=== PATIENT | female | born 1975 | race Caucasian/White ===

== ENCOUNTER 2016-06-17 15:47 | Inpatient (IN) | payer OTHER ==
[2016-06-17 15:54] VITALS: BMI 33.7
[2016-06-17] MEDS ORDERED: ONDANSETRON 4 MG/2 ML VIAL IVPUSH ONE (17:21)
[2016-06-17] MEDS ORDERED: SODIUM CHLORIDE 1,000 ML IV STA (17:21)
--- NOTE | 2016-06-17 17:23 | PDOC ---
History of Present Illness - General History Source: Patient Exam Limitations: No Limitations - History of Present Illness Initial Comments: 06/17/16 17:53 The patient is a 40-year-old female, with a significant past medical history of breast CA to brain and spine, who presents to the ED with 1 week of epigastric pain. The patient states that her pain is constant, sharp-like in sensation, exacerbated when lying down, and associated with nausea and vomiting. She has not been able to tolerate any solids but its able to hold down small amounts of liquids. The patient visited her Oncologist last Sunday for the abdominal pain and nausea and was prescribed some anti-nausea medication but her symptoms have not been alleviated. Pt has been taking her oral chemotherapy medication ( Capecitabine) for the past few weeks and receives radiation for her brain tumor and a shot for her bone mets. She reports that she last vomited prior to her visit (appeared yellow in color, no blood noted). The patient reports cough, and shortness of breath, back pain. The patient denies any fever, chills, diarrhea, dysuria, or hematuria. The patient denies any chest pain. Oncologist: Dr. Radha Mcnair <Nikki Davis - Last Filed: 06/18/16 02:02> - General History Source: Patient Exam Limitations: No Limitations <Cecily Sanders - Last Filed: 06/18/16 02:20> - General Chief Complaint: Pain, Acute Stated Complaint: ABD PAIN, NAUSEA Time Seen by Provider: 06/17/16 16:57 Past History <Nikki Davis - Last Filed: 06/18/16 02:02> - Past Medical History Cancer: Yes (breast stage IV) - Psycho/Social/Smoking Cessation Hx Suicidal Ideation: No Smoking History: Never smoked <Cecily Sanders - Last Filed: 06/18/16 02:20> - Past Medical History Allergies/Adverse Reactions: Allergies Allergy/AdvReac Type Severity Reaction Status Date / Time No Known Allergies Allergy Verified 06/17/16 15:48 Home Medications: Ambulatory Orders Granisetron HCl 1 mg PO BID 06/17/16 Review of Systems - Review of Systems Able to Perform ROS?: Yes Comments:: 06/17/16 17:55 GENERAL/CONSTITUTIONAL: No: fever, chills, weakness. Yes: loss of appetite HEAD, EYES, EARS, NOSE AND THROAT: No: change in vision, ear pain, discharge, sore throat, throat swelling. CARDIOVASCULAR: No: chest pain, lightheadedness, palpitations, syncope RESPIRATORY: No:wheezing, hemoptysis, stridor. Yes: cough, shortness of breath GASTROINTESTINAL: No: diarrhea, rectal bleeding, constipation. Yes: nausea, vomiting, abdominal pain. GENITOURINARY: No: dysuria, hematuria, frequency, urgency, flank pain. MUSCULOSKELETAL: No: neck pain, joint pain, muscle swelling. (+)back pain SKIN AND BREASTS: No: lesions, pallor, rash or easy bruising. NEUROLOGIC: No: headache, vertigo, paresthesias, weakness ENDOCRINE: No: unexplained weight gain or loss HEMATOLOGIC/LYMPHATIC: No: anemia, easy bleeding, swelling nodes <Nikki Davis - Last Filed: 06/18/16 02:02> *Physical Exam - Vital Signs Last Vital Signs Temp Pulse Resp BP Pulse Ox 98.1 F 122 H 18 119/98 98 06/17/16 15:48 06/17/16 15:48 06/17/16 15:48 06/17/16 15:48 06/17/16 15:48 - Physical Exam Comments: 06/17/16 17:59 GENERAL: The patient is in no acute distress. HEAD: Normal with no signs of trauma. EYES: PERRLA, EOMI, conjunctiva clear. (+)Sclera mildly icteric. ENT: Ears normal, nares patent, oropharynx clear without exudates. Moist mucous membranes. NECK: Normal range of motion, supple without lymphadenopathy, JVD, or masses. LUNGS: Breath sounds equal, clear to auscultation bilaterally. No wheezes, and no crackles. HEART:Regular rate and rhythm, normal S1 and S2 without murmur, rub or gallop. ABDOMEN: Soft, normoactive bowel sounds. No guarding, no rebound. (+)Diffuse abdominal tenderness, epigastric tenderness is worse. EXTREMITIES: Normal range of motion, no edema. No clubbing or cyanosis. No erythema, or tenderness. NEUROLOGICAL: Cranial nerves II through XII grossly intact. Normal speech. No focal neurological deficits. MUSCULOSKELETAL: Back non-tender to palpation, no CVA tenderness SKIN: Warm, Dry, normal turgor, no rashes or lesions noted. <Nikki Davis - Last Filed: 06/18/16 02:02> - Vital Signs Last Vital Signs Temp Pulse Resp BP Pulse Ox 98.1 F 122 H 18 119/98 98 06/17/16 15:48 06/17/16 15:48 06/17/16 15:48 06/17/16 15:48 06/17/16 15:48 <Cecily Sanders - Last Filed: 06/18/16 02:20> ED Treatment Course - LABORATORY CBC & Chemistry Diagram: 06/17/16 17:12 06/17/16 17:12 - Medications Given in the ED: ED Medications Discontinued Medications Generic Name Dose Route Start Last Admin Trade Name Tracy PRN Reason Stop Dose Admin Ondansetron HCl 4 mg 06/17/16 17:21 06/17/16 17:37 Zofran Injection IVPUSH 06/17/16 17:22 4 mg ONCE ONE Administration <Nikki Davis - Last Filed: 06/18/16 02:02> - LABORATORY CBC & Chemistry Diagram: 06/17/16 17:12 06/17/16 17:12 <Cecily Sanders - Last Filed: 06/18/16 02:20> Medical Decision Making - Medical Decision Making 06/18/16 02:03 Dr. Mcnair was paged and notified via phone service. <Nikki Davis - Last Filed: 06/18/16 02:02> - Medical Decision Making 06/17/16 17:23 I, Dr. Cecily Sanders, attest that this document has been prepared under my direction and personally reviewed by me in its entirety. I further attest, that it accurately reflects all work, treatment, procedures and medical decision -making performed by me. This is a 40 yo F with metastatic breast cancer (to the brain), s/p radiation, currently on chemo, possible ovarian ca (per patient)? pt presents to the ER with a complaint of diffuse abdominal pain pt has had abdominal pain for the past 5 days no fevers or chills (+) nausea and vomiting no diarrhea no change in diet no recent travel no ill contacts no prior reaction like this to chemo On examination: (+) mild scleral icterus diffuse abdominal tenderness, worse in the epigastrum, LUQ no involuntary guarding or rebound Will do labs Will do CT Will do US 06/17/16 19:04 Laboratory Tests 06/17/16 06/17/16 06/17/16 17:12 17:12 17:12 WBC 14.3 H D Hgb 13.5 Hct 39.9 Plt Count 426 D Neutrophils % 75.0 Lymphocytes % 16.0 Sodium 125 L D Potassium 5.1 D Chloride 90 L Carbon Dioxide 20 L D BUN 32 H D Creatinine 0.9 D Random Glucose 119 H Total Bilirubin 2.6 H D AST 193 H D ALT 128 H D Total Amylase 22 L Lipase 111 Serum , Qual Negative 06/17/16 20:45 US cholelithiasis No gb wall thickening (+) ascites Pending CT 06/17/16 23:18 IMAGES: 536 EXAM DATE AND TIME: 2016-06-17 22:28:53.0 EXAM: CT ABDOMEN AND PELVIS WITH CONTRAST Large pericardial effusion up to 3.8 cm thick. Moderate bilateral pleural effusions. Enlarged, heterogeneous ovaries measuring 8.2 cm on left and 7.5 cm on right, advise further evaluation with ultrasound. Multiple sclerotic lesions spine and pelvis, suspicious for metastatic disease. Small to moderate ascites. Presacral edema. No bowel obstruction, colitis, or free air. Normal appendix. Unremarkable pancreas and kidneys. Cholelithiasis. THIS DOCUMENT HAS BEEN ELECTRONICALLY SIGNED Disha Boudreaux M.D. 06/17/2016 22:59 EST 06/17/16 23:[address] Landon. Will place patient on observation Pt has elevated biliurbin Pt has icteric sclera 06/18/16 02:14 Pt admitted to hospitalist Call placed to Dr Mncair She states pt previously had effusions Current CT demonstrates large effusions she recommends transfer to [facility] <Cecily Sanders - Last Filed: 06/18/16 02:20> *DC/Admit/Observation/Transfer - Attestations Scribe Attestion: 06/17/16 18:00 Documentation prepared by Nikki Davis, acting as medical accountant for Cecily Sanders MD. <Nikki Davis - Last Filed: 06/18/16 02:02> - Discharge Dispostion Admit: Yes <Cecily Sanders - Last Filed: 06/18/16 02:20> Diagnosis at time of Disposition: Vomiting Qualifiers: Vomiting type: unspecified Vomiting Intractability: intractable Nausea presence : with nausea Qualified Code(s): R11.2 - Nausea with vomiting, unspecified Abdominal pain Qualifiers: Abdominal location: upper abdomen, unspecified Qualified Code(s): R10.10 - Upper abdominal pain, unspecified - Discharge Dispostion Condition at time of disposition: Stable - Referrals
[2016-06-17] MEDS ORDERED: morphine CARPU-JECT 4 MG/1 ML DISP.SYRIN ONE (17:30)
[2016-06-17 17:44] LABS: MCH 33.9 pg (25.7-33.7); MCHC 33.8 g/dl (32.0-36.0); MEAN CELL VOLUME 100.3 fl (80-96); MEAN PLT VOLUME 8.1 fl (7.5-11.1); PLATELET COUNT 426 K/MM3 (134-434); RDW 16.7 % (11.6-15.6); WHITE BLOOD COUNT 14.3 K/mm3 (4.0-10.0)
[2016-06-17 18:12] LABS: ANISOCYTOSIS 1+; PLATELET ESTIMATE INCREASED (NORMAL); POLYCHROMASIA FEW
[2016-06-17 18:13] LABS: ALBUMIN 3.5 g/dl (3.4-5.0); AMYLASE 22 U/L (25-115); ANION GAP 15 (8-16); CO2 20 mmol/L (21-32); CREATININE 0.9 mg/dL (0.55-1.02); GLUCOSE,RANDOM 119 mg/dL (74-106); SGOT/AST 193 U/L (15-37); SGPT/ALT 128 U/L (12-78)
[2016-06-17 18:14] LABS: ALK PHOS 92 U/L (45-117); BILIRUBIN,TOTAL 2.6 mg/dL (0.2-1.0); TOT PROT 6.6 g/dl (6.4-8.2)
[2016-06-17 19:48] LABS: URINE APPEARANCE SLCLOUDY; URINE BLOOD NEGATIVE (NEGATIVE); URINE COLOR AMBER; URINE GLUCOSE (UA) 1+ (NEGATIVE); URINE KETONE TRACE (NEGATIVE); URINE NITRITE NEGATIVE (NEGATIVE); URINE UROBILINOGEN 4.0 E.U/dl E.U./dl (0.2-1.0)
[2016-06-17 19:54] LABS: URINE LEUK ESTERASE 1+ (NEGATIVE); URINE PROTEIN 3+ (NEGATIVE)
[2016-06-17] MEDS ORDERED: morphine CARPU-JECT 4 MG/1 ML DISP.SYRIN IVPUSH ONE (20:15)
[2016-06-18] MEDS ORDERED: SODIUM CHLORIDE 1,000 ML IV STA ×2 (01:46→09:19)
--- NOTE | 2016-06-18 02:22 | PDOC ---
ED Treatment Course - LABORATORY CBC & Chemistry Diagram: 06/18/16 06:15 06/18/16 06:15 - ADDITIONAL ORDERS Additional order review: Laboratory Results 06/17/16 06/17/16 17:12 17:12 Sodium 125 L D Potassium 5.1 D Chloride 90 L Carbon Dioxide 20 L D Anion Gap 15 BUN 32 H D Creatinine 0.9 D Creat Clearance w eGFR > 60 Random Glucose 119 H Calcium 8.0 L Total Bilirubin 2.6 H D AST 193 H D ALT 128 H D Alkaline Phosphatase 92 D Total Protein 6.6 Albumin 3.5 Total Amylase 22 L Lipase 111 Serum , Qual Negative Urine Color Iveth Urine Appearance Slcloudy Urine pH 5.0 D Ur Specific [place] 1.032 Urine Protein 3+ H Urine Glucose (UA) 1+ H Urine Ketones Trace H Urine Blood Negative Urine Nitrite Negative Urine Bilirubin 2.0 Urine Urobilinogen 4.0 e.u/dl H Ur Leukocyte Esterase 1+ H D 06/17/16 17:12 RBC 3.98 MCV 100.3 H MCHC 33.8 RDW 16.7 H MPV 8.1 Neutrophils % 75.0 Lymphocytes % 16.0 Monocytes % 7.0 Eosinophils % 2.0 - RADIOLOGY Radiology Studies Ordered: Category Date Time Status ABDOMEN & PELVIS CT WITH CONTR [CT] Stat CT Scan 06/17/16 17:51 Taken ABDOMEN US -LIMITED [US] Stat Ultrasound 06/17/16 19:14 Taken - Medications Given in the ED: ED Medications Discontinued Medications Generic Name Dose Route Start Last Admin Trade Name Freq PRN Reason Stop Dose Admin Sodium Chloride 1,000 mls @ 1,000 mls/hr 06/17/16 17:21 06/17/16 17:37 Normal Saline - IV 06/17/16 18:20 1,000 mls/hr ASDIR STA Administration Morphine Sulfate 4 mg 06/17/16 20:15 06/17/16 16:40 Morphine Injection - IVPUSH 06/17/16 20:16 4 mg ONCE ONE Administration Ondansetron HCl 4 mg 06/17/16 17:21 06/17/16 17:37 Zofran Injection IVPUSH 06/17/16 17:22 4 mg ONCE ONE Administration Medical Decision Making - Medical Decision Making 06/18/16 02:49 Plan to transfer this patient to [facility] Accepted by Dr Darryl Downing No beds Pt will be given priority for transfer in the AM Pt may need intervention for large pericardial effusion *DC/Admit/Observation/Transfer Diagnosis at time of Disposition: Vomiting Qualifiers: Vomiting type: unspecified Vomiting Intractability: intractable Nausea presence : with nausea Qualified Code(s): R11.2 - Nausea with vomiting, unspecified Abdominal pain Qualifiers: Abdominal location: upper abdomen, unspecified Qualified Code(s): R10.10 - Upper abdominal pain, unspecified - Discharge Dispostion Disposition: TRANSFER ACUTE CARE/OTHER HOSP Condition at time of disposition: Stable Decision to Admit order Date/Time: Decision to Admit Order Category Date Time Status Decision to Admit to Hospital Routine Admission 06/17/16 23:55 Active - Transfer to Acute Care Facility Receiving Facility: [facility] Accepting Physician:: Dr. Darryl Downing
--- NOTE | 2016-06-18 02:59 | HP ---
Admitting History and Physical - Admission Chief Complaint: abdominal pain History of Present Illness: 40-year-old female, with a significant past medical history of breast CA to brain and spine, who presents to the ED with 1 week of abdominal pain. She reports pain is felt mostly in her RUQ region, non-radiating 5/10, aggravated with laying on her right side. She reports taking some tylenol 2 tabs 500mg BID for the past 2 days. She endorses associated nausea, and decreased appetite. She states she has been vomiting clear material. She states she has body aches and chills. She also endorses MAY x 1 week. She reports shortness of breath with walking. She reports feeling pressure in her chest with sitting up. She reports that when she lays down she feels like fluid in her chest. She reports noticing skin color changes since starting the chemo and states that she has been itching. She was seen by her oncologist and given Granisteron with no improvement. She has been on Capecitabine and getting Xrt for brain mets in 2016. She reports that her cancer is stage 4 and she is palliative care. She reports gradual weight loss over 20lb in the past year. Per attending's discussion with oncologist, the patient previously had small pericardial effusion and pleural effusions. She denies fevers, diarrhea, dysuria, cough, orthopnea She denies heart palps, dizziness, headache Attending ER spoke with Dr. Downing who will accept patient to [facility]. Unfortunately there is no bed available at the moment PMH/PSh: Metastatic breast cancer, Social: She denies tobacco, alcohol, recreational drugs. Has 2 kids ages 15,6 Famhx: Mom- htn. Dad- DM Dr. Ford-- Oncologist Ros neg except for hpi Physical General- in nad, alert Hent- At/NC, theresa, sclera icterus, L supraclavicular node, trachea midline Resp- no cough, no accessory muscle use, lungs ctab, no wheeze, no rhonci Cards- S1S2 heard, no JVD, extremity pulses +2, no leg edema, tachycardic Skin- jaundice, discoloration to neck Musk- normal arom bue/ble Gi- ascites, + rebound, no guarding, no rigidity, BS normoactive Psych- cooperative, no agitation, normal affect Neuro- alert and oriented, speech clear, no seizures Prob list Metastatic breast cancer Transaminitis Hyponatremia Dehydration Abd pain N/V Pericaridal effusion Pleural effusions Hyperbilirubemia Leukocytosis uti MAY Anorexia Imagin06/17/16 20:45 US cholelithiasis No gb wall thickening (+) ascites EXAM DATE AND TIME: 2016-06-17 22:28:53.0 EXAM: CT ABDOMEN AND PELVIS WITH CONTRAST Large pericardial effusion up to 3.8 cm thick. Moderate bilateral pleural effusions. Enlarged, heterogeneous ovaries measuring 8.2 cm on left and 7.5 cm on right, advise further evaluation with ultrasound. Multiple sclerotic lesions spine and pelvis, suspicious for metastatic disease. Small to moderate ascites. Presacral edema. No bowel obstruction, colitis, or free air. Normal appendix. Unremarkable pancreas and kidneys. EKG- sinus tachycardia, normal intervals CXR pending A/P 40-year-old female, with a significant past medical history of breast CA to brain and spine, who presents to the ED with 1 week of abdominal pain admitted for evaluation of their emergent condition. 1. Abdominal pain, nausea and vomiting---- ?Perotinitis, ?Carcinamatosis ? Cystitis CTAP negative for obstruction, shows large pericardial effusion and pleural effusion On exam patient had ?rebound tenderness, Ultrasound shows ascites UA show +1 leukocytes, Control pain Abdomen checks Prn Zofran Will Give CTX 2gm Collect blood cultures Consult ID 2. Transaminitis, Hyperbilirubemia ? 2/2chemo Patient on Capecitabine Patient appears jaundice US neg for gallbladder wall thickening Will check Acute hep panel, Tylenol level Monitor LFTs 3. Hyponatremia, likely related to volume loss from vomiting Gently fluid resuscitation Check serum osm Monitor labs 4. Metastatic breast cancer, brain and bone mets Patient following Dr. Ford, anticipate transfer to [facility] Per patient she had 16 Xrt treatments to her brain in 2015 5. Pericardial effusion, pleural effusion Cardiac tele, check echo, cards consult 6. MAY likely referable to #5 1st trop negative, no katie/std Cards consult Cycle troponins Check echo 7. Leukocytosis Monitor labs 8.Anorexia referable to #4 FEN IVF NS 75cc/hr DVT prophy SCD, OOB, hold chemoprophy 2/2 hx of brain mets, and pericardial effusion Dispo- Anticipate transfer to [facility] in am for further care History Source: Patient Limitations to Obtaining History: Language Barrier - Smoking History Smoking history: Never smoked Home Medications - Allergies Allergies/Adverse Reactions: Allergies Allergy/AdvReac Type Severity Reaction Status Date / Time No Known Allergies Allergy Verified 06/17/16 15:48 - Home Medications Home Medications: Ambulatory Orders Granisetron HCl 1 mg PO BID 06/17/16 Physical Examination Vital Signs: Vital Signs Temperature 97.5 F L 06/17/16 22:44 Pulse Rate 110 H 06/17/16 22:44 Respiratory Rate 20 06/17/16 22:44 Blood Pressure 118/92 06/17/16 22:44 O2 Sat by Pulse Oximetry (%) 99 06/17/16 22:44 Visit type - Emergency Visit Emergency Visit: Yes ED Registration Date: 06/17/16 Care time: The patient presented to the Emergency Department on the above date and was hospitalized for further evaluation of their emergent condition. - New Patient This patient is new to me today: Yes Date on this admission: 06/18/16 - Critical Care Critical Care patient: No
[2016-06-18] MEDS ORDERED: ONDANSETRON 4 MG/2 ML VIAL IVPB PRN (03:06)
[2016-06-18] MEDS ORDERED: morphine CARPU-JECT 2 MG/1 ML DISP.SYRIN IVPUSH PRN ×3 (03:07→14:27)
[2016-06-18] MEDS ORDERED: CEFTRIAXONE 2 GM in DEXTROSE 5%-WATER - 100 ML IVPB ONE (04:26)
[2016-06-18] MEDS ORDERED: cefTRIAXone 2 GM/100 ML BAG (PRE-DOCKED) IVPB SCH (05:30)
[2016-06-18] MEDS ORDERED: diphenhydrAMINE HCL 25 MG CAPSULE (FP) PO PRN (06:46)
[2016-06-18 07:42] LABS: BASOPHIL 0.9 % (0-2.0); EOSINOPHIL 0.3 % (0-4.5); MCH 34.3 pg (25.7-33.7); MEAN CELL VOLUME 100.8 fl (80-96); MEAN PLT VOLUME 7.9 fl (7.5-11.1); NEUTROPHILS 72.5 % (42.8-82.8); PLATELET COUNT 386 K/MM3 (134-434); RDW 17.2 % (11.6-15.6); WHITE BLOOD COUNT 14.8 K/mm3 (4.0-10.0)
[2016-06-18 08:31] LABS: ALBUMIN 3.3 g/dl (3.4-5.0); ANION GAP 14 (8-16); CALCIUM 7.2 mg/dL (8.5-10.1); CO2 20 mmol/L (21-32); GLUCOSE,RANDOM 130 mg/dL (74-106)
[2016-06-18 08:35] LABS: ALK PHOS 81 U/L (45-117); BILIRUBIN,TOTAL 2.1 mg/dL (0.2-1.0); CREATININE 0.7 mg/dL (0.55-1.02); SGOT/AST 242 U/L (15-37); SGPT/ALT 152 U/L (12-78)
[2016-06-18 09:49] VITALS: TEMP 97.6
[2016-06-18] MEDS ORDERED: CEFTRIAXONE 2 GM in DEXTROSE 5%-WATER - 100 ML IVPB SCH (10:00)
--- NOTE | 2016-06-18 13:42 | HOSP ---
Subjective - Review of Symptoms Pulmonary: Yes: Dyspnea Gastrointestinal: Yes: Nausea, Abdominal Pain Musculoskeletal: Yes: No Symptoms Neurological: Yes: Weakness Physical Examination Vital Signs: Vital Signs Temperature 97.6 F 06/18/16 08:30 Pulse Rate 120 H 06/18/16 12:00 Respiratory Rate 18 06/18/16 12:00 Blood Pressure 134/74 06/18/16 12:00 O2 Sat by Pulse Oximetry (%) 96 06/18/16 11:08 Neck: Yes: WNL Cardiovascular: Yes: Tachycardia Respiratory: Yes: Diminished Gastrointestinal: Yes: Ascites, Distention ...Rectal Exam: Yes: Deferred Labs: CBC, BMP 06/18/16 06:15 06/18/16 06:15 Hospitalist Encounter Assessment: Patient is a 40 year old female with an significant past medical history of breast cancer with mets to the brain and spine. She reported to the ED with 1 week of abdominal pain, mostly on her RUQ region, non radiating. She took OTC pain medications (Tylenol) with some relief. She reports nausea, poor appetite and some emesis. She also reports dyspnea on exertion and chest pressure when sitting up. She was on an oral chemo regimen (Capecitabine). She reports that her cancer is stage 4 and that she is currently on palliative care. I spoke with Dr. Ford who is aware of patient's admission and pending transfer to [facility]. Patient denies chest pain. Cardiology: Pericardial effusion Assessment/Plan: Sinus tachycardia on telemonitor Cardiology consulted Echo pending Continue to monitor closely Troponins negative x 2, serial troponins ordered ID: Leukocytosis - source? Assessement/Plan: Started on Rocephin Blood cultures/urine cultures pending ID consulted GI Abdominal pain with nausea and vomiting Assessment/Plan: CT of abdomen/pelvis negative for obstruction, shows large pericardial effusion and pleural effusion Ultrasound shows ascites, +pain on suprapubic region Will start on clears and monitor no involuntary guarding or rebound ID consulted Oncology: Metastatic breast cancer Assessment/Plan: Seen by Dr. Garcia. Transfer to [facility] for further treatment/ workup Previously (2016) had radiation to brain at [facility] Pulmonary: Pleural Effusions Assessment/Plan: Supplemental oxygen Pending transfer to [facility], if no beds available and prolonged stay, will consult pulmonary F.E.N. Fluids: NS @ 100cc/hr Nutrition: Clear liquid diet as tolerated Electrolytes: Hyponatremia- NS @ 100/hr Hyperkalemia - slight, 5.2, monitor Prophylaxis: DVT: Lovenox 40mg daily GI: Protonix 40mg daily Disposition: Pending transfer to [facility], accepting physician Dr. Downing. [employer] Consultant Dr. Marcin Urban [phone]
--- NOTE | 2016-06-18 14:20 | CONSULT ---
Consult - text type - Consultation Consultation Note: Cardiology 40-year-old female, with a significant past medical history of breast CA to brain and spine, who presents to the ED with 1 week of abdominal pain, chest pains abnd dyspnea. She reports pain is felt mostly in her RUQ region, non- radiating 5/10, aggravated with laying on her right side. Per attending's discussion with oncologist, the patient previously had small pericardial effusion and pleural effusions. PMH/PSh: Metastatic breast cancer, Social: She denies tobacco, alcohol, recreational drugs. Has 2 kids ages 15,6 Famhx: Mom- htn. Dad- DM Ros neg except for hpi Physical General- in nad, alert normal cardio-pulmonary exam abdomen soft no leg edema Impresion: cardiomegaly on CXR, rule out pericardial effusion sinus tachycardia abdominal pains Rec: EKG Echocardiogram
[2016-06-18] MEDS ORDERED: METOPROLOL TARTRATE 25 MG TABLET (FP) PO SCH (16:00)
--- NOTE | 2016-06-18 16:09 | CONSULT ---
Consult Consult Specialty:: infectious diseases Reason for Consultation:: nausea vomiting weakness - History of Present Illness Chief Complaint: nausea vomiting History of Present Illness: 40-year-old female, with a significant past medical history of breast CA to brain and spine, who presents to the ED with 1 week of abdominal pain. patient c/o pain since last week which is associated with vomiting and nausea patient has lot of heaves and has been vomiting abd pain is in mid epigastrium she was on chemo till recently patient denies any fever but had chills she looks well and does not look dehydrated - History Source History Provided By: Family Member Limitations to Obtaining History: Language Barrier - Smoking History Smoking history: Never smoked Home Medications - Allergies Allergies/Adverse Reactions: Allergies Allergy/AdvReac Type Severity Reaction Status Date / Time No Known Allergies Allergy Verified 06/17/16 15:48 - Home Medications Home Medications: Ambulatory Orders Granisetron HCl 1 mg PO BID 06/17/16 Review of Systems - Review of Systems Constitutional: reports: Weakness Eyes: reports: No Symptoms HENT: reports: No Symptoms Neck: reports: No Symptoms Cardiovascular: reports: No Symptoms Respiratory: reports: No Symptoms Gastrointestinal: reports: Abdominal Pain, Nausea, Vomiting Genitourinary: reports: No Symptoms Breasts: reports: No Symptoms Reported Musculoskeletal: reports: No Symptoms Integumentary: reports: No Symptoms Neurological: reports: No Symptoms Endocrine: reports: No Symptoms Hematology/Lymphatic: reports: No Symptoms Psychiatric: reports: No Symptoms Physical Exam Vital Signs: Vital Signs Temperature 97.6 F 06/18/16 08:30 Pulse Rate 120 H 06/18/16 14:00 Respiratory Rate 20 06/18/16 14:00 Blood Pressure 94/55 06/18/16 14:00 O2 Sat by Pulse Oximetry (%) 96 06/18/16 11:08 Constitutional: Yes: Calm, Mild Distress Eyes: Yes: Conjunctiva Clear HENT: Yes: Atraumatic Neck: Yes: Supple Cardiovascular: Yes: Regular Rate and Rhythm Respiratory: Yes: Regular, Poor Air Entry Gastrointestinal: Yes: Soft, Tenderness (mid epigastrium) Musculoskeletal: Yes: WNL Extremities: Yes: WNL Integumentary: Yes: WNL Neurological: Yes: Alert, Oriented Psychiatric: Yes: Alert, Oriented Labs: CBC, BMP 06/18/16 06:15 06/18/16 06:15 Imaging - Results Chest X-ray: Report Reviewed, Image Reviewed Cat Scan: Image Reviewed Ultrasound: Image Reviewed Assessment/Plan 40-year-old female, with a significant past medical history of breast CA to brain and spine, who presents to the ED with 1 week of abdominal pain admitted for evaluation of their emergent condition. 1. Abdominal pain, nausea and vomiting- 2. Transaminitis, Hyperbilirubemia 3. Hyponatremia, l 4. Metastatic breast cancer, brain and bone mets 5. Pericardial effusion, pleural effusion 7. Leukocytosis 8.Anorexia i do not think she has infective pathology patient is on ceftriaxone plan await for all cx report antacid/ppi if allowed hydration can stop abx
[2016-06-18] MEDS ORDERED: SODIUM CHLORIDE 1,000 ML IV SCH (17:00)
[2016-06-18 18:09] VITALS: BP 104/74; PULSE 114
[2016-06-19] MEDS ORDERED: PANTOPRAZOLE 40 MG TABLET (FP) PO SCH (10:00)
--- NOTE | 2016-06-19 12:13 | EKG ---
Test Reason : Blood Pressure : / mmHG Vent. Rate : 110 BPM Atrial Rate : 110 BPM P-R Int : 126 ms QRS Dur : 066 ms QT Int : 324 ms P-R-T Axes : 049 037 016 degrees QTc Int : 438 ms SINUS TACHYCARDIA LOW VOLTAGE QRS BORDERLINE ECG WHEN COMPARED WITH ECG OF 29-APR-2016 19:17, QRS VOLTAGE HAS DECREASED NONSPECIFIC T WAVE ABNORMALITY NOW EVIDENT IN INFERIOR LEADS Confirmed by REID PEDERSON MD ([id number]) on 06/19/2016 12:13:20 PM Referred By: Confirmed By:REID PEDERSON MD
[2016-06-19] MEDS ORDERED: ENOXAPARIN NA (PORCINE) 40 MG/0.4 ML DISP.SYRIN SQ SCH (21:00)
== END 2016-06-18 18:39 | disposition short-term general hospital (02) | DRG 251 ==
LOC: JER 15:47 → INTOOBSV 23:59 → JERBED 23:59 → OBSVTOIN 06-18 03:53 → J4W 06-18 04:58
PROVIDERS: ADMIT Internal Medicine; ATTEND Nurse Practitioner Family
DX: R10.11 Right upper quadrant pain (principal); C50.919 Malignant neoplasm of unspecified site of unspecified female breast; C79.31 Secondary malignant neoplasm of brain; C79.51 Secondary malignant neoplasm of bone; C79.89 Secondary malignant neoplasm of other specified sites; E87.1 Hypo-osmolality and hyponatremia; E86.0 Dehydration; I31.3 Pericardial effusion (noninflammatory); J90 Pleural effusion, not elsewhere classified; R74.0 Nonspecific elevation of levels of transaminase and lactic acid dehydrogenase [LDH]; E80.6 Other disorders of bilirubin metabolism; R63.0 Anorexia; Z68.33 Body mass index [BMI] 33.0-33.9, adult; R18.8 Other ascites; E87.5 Hyperkalemia; R00.0 Tachycardia, unspecified
CPT/HCPCS: 36415; 71010-TC; 74177-TC; 76705-TC; 80053; 80074; 80307; 81003; 81015; 82150; 83690; 83930; 84484; 84703; 85025; 87040; 87086; 93005; 93010; 99285-25; G0378